=== PATIENT | female | born 1940 | race Caucasian/White ===

== ENCOUNTER 2021-10-21 15:33 | Inpatient (IN) | payer MEDICARE ==
[~2021-10-21] VITALS: Ht 172.7 cm; Wt 77.3 kg
[2021-10-21 16:00] LABS: BASO % 0.2 % (0.0-2.0); GRAN # 10.9 K/mm3 (1.4-6.5); GRAN % 82.4 % (42.2-75.2); HEMATOCRIT 39.5 % (37.0-47.0); LYMPH # 1.3 K/mm3 (1.2-3.4); LYMPH % 9.6 % (20.0-51.0); MEAN CELL VOLUME 78 fl (80.0-100.0); MEAN CORPUSCULAR HEMOGLOBIN 26 pg (27-31); MEAN CORPUSCULAR HGB CONC 33 g/dl (33.0-37.0); MONO % 7.2 % (1.7-9.3); PLATELET COUNT 219 K/mm3 (130-400); RED BLOOD COUNT 5.06 M/mm3 (4.10-5.30); REDCELL DISTRIBUTION WIDTH-CV 15.9 % (11.5-14.5)
[2021-10-21 16:07] LABS: INR 1.8 (0.8-3.0); PROTHROMBIN TIME 21.2 SECONDS (9.7-12.8)
[2021-10-21 16:09] LABS: PARTIAL THROMBOPLASTIN TIME 44.9 SECONDS (26.0-37.0)
[2021-10-21 16:22] LABS: ALBUMIN 3.2 gm/dL (3.4-4.8); BILIRUBIN,TOTAL 0.9 mg/dL (0.2-1.2); CALCIUM 9.6 mg/dL (8.4-10.2); CREATININE, serum 0.85 mg/dL (0.57-1.11); POTASSIUM 3.6 mmol/L (3.5-4.5)
[2021-10-21 16:28] LABS: COLLECTION METHOD CLEAN CATCH; URINE APPEARANCE Clear (CLEAR/HAZY); URINE COLOR Yellow (YELLOW); URINE GLUCOSE 3+ (NEGATIVE); URINE PROTEIN(semi-quant) 1+ (NEGATIVE)
[2021-10-21 16:29] LABS: URINE BLOOD 2+ (NEGATIVE); URINE KETONE Negative (NEGATIVE); URINE NITRATE Negative (NEGATIVE); URINE UROBILINOGEN 0.2 E.U/dL (0.2-1.0)
[2021-10-21 16:31] LABS: MUCOUS Present (NOT PRESENT); SQUAMOUS EPITHELIAL None Seen /hpf (0-10); URINE BACTERIA Rare /hpf (NONE SEEN)
[2021-10-21 16:32] LABS: TROPONIN-I 0.373 ng/mL (0.00-0.033)
[2021-10-21 17:14] VITALS: TEMP 98.9
[2021-10-21 18:50] VITALS: BP 105/60; PULSE 90
--- NOTE | 2021-10-21 20:45 | NUR ---
1900 - PATIENT ARRIVES TO FLOOR UNRESPONSIVE TO VERBAL COMMUNICATION. PATIENT WILL BRIEFLY OPEN EYE TO STERNAL RUB. PATIENT IS TRANSFERRED TO BED WITH NO ISSUES. PATIENT HYGIENE PERFORMED AT THIS TIME WELL A FULL SKIN ASSESSMENT. IT IS NOTED PATIENT IS VERY COLD AND STIFF WITH ANY KIND OF MANUAL MOVEMENT. APPROXIMATELY 2000 - PATIENT IS COLD, DIAPHORETIC AND IN A-FIB. THIS NURSE NOTIFIED NATHALIE CANTRELL AT THIS TIME. VITALS TAKEN AND ARE NOT WNL. SUNNY NOTIFIED FAMILY TO RETURN TO HOSPITAL. PATIENT IS TURNED TO RIGHT SIDE WITH PILLOW CUSHIONING. 2019 FAMILY ARRIVES AND IS ORIENTED TO ROOM AND ENCOURAGED TO CALL WITH ANY NEEDS OR CONCERNS. FAMILY STATES UNDERSTANDING. CURRENTLY AT BEDSIDE IS ONE DAUGHTER AND ONE GRAND DAUGHTER.
[2021-10-21] MEDS ORDERED: K-DUR 10 MEQ T10 MEQ PO (21:22)
[2021-10-21] MEDS ORDERED: NAMENDA 10MG TA10 MG PO (21:22)
[2021-10-21] MEDS ORDERED: FARXIGA10 PO (21:22)
[2021-10-21] MEDS ORDERED: CARDIZEM CD 18180 MG PO (21:22)
[2021-10-21] MEDS ORDERED: NEURONTIN300 MG/CAP PO (21:22)
[2021-10-21] MEDS ORDERED: PLAVIX 75MG TAB75 MG PO (21:22)
[2021-10-21] MEDS ORDERED: LEVEMIR FLEX100 U/ML SQ (21:23)
[2021-10-21] MEDS ORDERED: LOPID 600M600 MG/TAB PO (21:23)
[2021-10-21] MEDS ORDERED: GLUCOPHAGE500 MG/TAB PO (21:23)
[2021-10-21] MEDS ORDERED: SYNTHROID0.112 MG/T PO (21:24)
[2021-10-21] MEDS ORDERED: ZOLOFT 50MG50 MG PO (21:24)
[2021-10-21] MEDS ORDERED: XARELTO20 MG PO (21:24)
[2021-10-21] MEDS ORDERED: ARICEPT10 MG PO (21:24)
[2021-10-21] MEDS ORDERED: B-121000 MCG PO (21:25)
[2021-10-21] MEDS ORDERED: HYZAAR 25 MG-101 TAB PO (21:25)
[2021-10-21] MEDS ORDERED: MULTI VITAMINS1 TAB PO (21:28)
[2021-10-21] MEDS ORDERED: OMEGA-31 SGL PO (21:28)
--- NOTE | 2021-10-21 22:31 | NUR ---
THIS NURSE IN PATIENT ROOM TO DISCONTINUE TELE AT THIS TIME. PATIENT IS NOT AWAKE AND TALKING AT THIS TIME. PATIENT DOES OPEN EYES TO VERBALLY SAYING HER NAME. PATIENT THREE DAUGHTERS ARE AT BEDSIDE. FAMILY EXPRESSES APPRECIATION FOR ALL WE ARE DOING FOR THEIR MOTHER AND APPRECIATION FOR MAKING HER COMFORTABLE. PATIENT STATES IT FEELS REALLY NICE TO HAVE TELE OFF.
--- NOTE | 2021-10-22 00:06 | NUR ---
FAMILY HAS REQUESTED PATIENT IV AND OXYGEN BE REMOVED. PATIENT OXYGEN LEVEL WAS 82% AT ROOM AIR. DASHAIY REQUEST HONORED AT THIS TIME, OXYGEN REMOVED AND IV FLUIDS STOPPED. FAMILY IS DISCUSSING GOING HOME AT THIS TIME TO GET SOME REST. FAMILY ENCOURAGED BY THIS NURSE SHE WILL CALL WITH ANY CHANGES PER THEIR REQUEST. FAMILY STATES APPRECIATION FOR GENTLE CARE THE PATIENT IS RECEIVING FROM STAFF.
--- NOTE | 2021-10-22 06:14 | NUR ---
Alem called from lab to report poisitive blood cultures times two. Patient is resting in bed with eyes closed, minimally responsive to verbal communication. Patient is having brief moments of being able to converse under 1 minute. Call light is in patient lap and patient encouraged to use with needs or concerns.
--- NOTE | 2021-10-22 08:00 | NUR ---
PT ASSESSED, A&O X3, CONFUSED IN LOCATION. COMFORT CARE ORDER IN PLACE. VS PRN. IV CDI. DENIES PAIN AND DISCOMFORT. FOLLEY INTACT. LF FOOT ELEVATED ON PILLOW. REPOSITIONED FOR COMFORT. CALL LIGHT WITHIN REACH, BED ALARM ON.
--- NOTE | 2021-10-22 16:13 | NUR ---
Kimberli RN informs this Coat Fitter that patient's family requesting hospice care at [place]. Coat Fitter met with patient for intake assessment/discharge planning: Patient is somewhat oriented, but struggles to remember the names of her "daughters' daughters," expressing pride that she is a great grandmother. Coat Fitter obtains telephone contact for daughters on patient whiteboard: Sangeetha Barkley , and Kimberli Casanova ([phone]). Coat Fitter contacted Sangeetha, who updates this Coat Fitter: Patient lives alone, at home, and utilizes a walker to ambulate. Patient already has up to 1.5 hours per day Home Health through [facility], 5 days a week, excluding holidays and weekends. Karen Mei APRN is patient primary care in [place] and preferred pharmacy is [facility] in [place]. There are no concerns regarding patient medications. Daughter informs patient may benefit from in-home support services 24.7, including attendant care services. She does not know if patient will have a hospice diagnosis, and does not yet want a hospice referral placed. She would like to establish a family meeting tomorrow with patient's care team for medical update and care planning. She states patient has another daughter Marika Arango, who is not a DPOA-HC and requests that the treatment team defer any contact from Marika to she or her sister Kimberli. Sangeetha to bring DPOA-HC paperwork just in case it is not located in patient medical record tomorrow. She and Kimberli will need at least 1 hours notice to get to the hospital for care planning family meeting. Coat Fitter to establish family meeting with patient and treatment team tomorrow, to determine plan of care and identify in-home needs. *Discharge plan pending*
--- NOTE | 2021-10-22 17:40 | NUR ---
PT HAD AN UNEVENTFUL DAY. VITAL SIGNS STABLE. PT DENIES PAIN. FAMILY MEMBERS AT BEDSIDE MOST OF THE SHIFT. IV CLEAN AND INTACT. REPOSITIONED FOR COMFORT NEEDED. COMFORT CARE ORDERS IN PLACE. CALL LIGHT WITHIN REACH. BED ALARMS ON.
--- NOTE | 2021-10-23 05:16 | NUR ---
PATIENT HAS HAD UNEVENTFUL NIGHT. PATIENT LYING IN BED WITH EYES CLOSED. PATIENT OPENS EYES TO NAME AND DENIES PAIN. CALL LIGHT IS WITHIN PATIENT REACH AND PATIENT ENCOUARGED TO USE WITH ANY NEEDS OR CONCERNS. PATIENT STATES UNDERSTANDING.
--- NOTE | 2021-10-23 09:00 | NUR ---
Patient is resting in bed awake and oriented to self. Cath larsen in place, yellow clear output. Denies any pain at this time. Assessment completed, meds provided. No other need at this time. repositioned legs. Call light within reach, assisted to order breakfast. Bed alarm on.
--- NOTE | 2021-10-23 10:49 | NUR ---
Attended rounds. Discussed hospice options with patient, 2 of her daughters, and SW. Family understands what hospice is and are unable to provide hospice at home for the patient. They request placement in [place] with [facility] if possible. They also requested assistance completing the [facility] application. SW notified financial counselor.
--- NOTE | 2021-10-23 15:07 | NUR ---
Patient Escort attended clinical rounds with the team with Svitlana Palliative RN. Patient's daughters, Sangeetha and Kimberli at bedside. Patient awake and alert for rounds. Following physician rounding, JASMEET and Svitlana discussed plan of care. Patient and family have decided to pursue hospice. Patient's family are firm they cannot take patient home and provide care. They would like for patient to be placed in [place]. Preferences are 1) [place] [facility] and 2) [facility] [place]. Patient does not have funds to private pay and would be Medicaid pending. JASMEET consulted [facility] Financial Counselor who advised she will complete Medicaid application today. JASMEET contacted both facilities and faxed referral. Patient's family would like to use [facility] so JASMEET also faxed a referral to them. Discharge Plan: Hospice at [facility] Medicaid pending
--- NOTE | 2021-10-23 16:14 | NUR ---
[place] declined referral as they cannot accept any patient without a secondary payer source. Odette at [facility] advised they feel they can clinically meet needs but will need to speak with family about the financial aspect.
--- NOTE | 2021-10-23 17:38 | NUR ---
Patient has had a calm day. She has been alert and oriented but forgetful. She has been eating poorly. Family was with her for a good part of the day. Awaiting placement by JASMEET. Report will be given to night RN.
--- NOTE | 2021-10-24 07:12 | NUR ---
PT HAD UNEVENTFUL NIGHT. DENIES ANY PAIN OR DISCOMFORT. NO CONCERNS. REPORT GIVEN TO DAY SHIFT.
--- NOTE | 2021-10-24 15:57 | NUR ---
Compress Engineer spoke with Odette at [facility] who advised they spoke with family and can accept patient tomorrow. Odette advised transport would likely be in the afternoon. JASMEET told Odette that they would need oxygen and a wheelchair for moss picker. JASMEET updated Iris at [facility] who advised they could do an admit tomorrow vs depending on what time patient is picked up. JASMEET contacted patient's daughter, Sangeetha who is in agreement with discharge tomorrow to [facility]. JASMEET updated Palliative RN and Hospitalist. Discharge Plan: [facility] tomorrow
[2021-10-25] MEDS ORDERED: DULCOLAX S10 MG/SUPP RC (08:19)
[2021-10-25] MEDS ORDERED: SYSTANE 0.4%-0.1 SOL OU (08:19)
[2021-10-25] MEDS ORDERED: ATIVAN 1MG T1 MG/TAB PO (08:19)
[2021-10-25] MEDS ORDERED: NORCO 325 MG-51 TAB PO (08:19)
--- NOTE | 2021-10-25 11:40 | NUR ---
SHIFT ASSESSMENT COMPLETED. MORNING MEDICATIONS GIVEN. PT RESTING IN BED. DENIES ANY PAIN OR NEEDS. CALL LIGHT WITHIN REACH. ZAZUETA CATHETER DRAINING WELL. PLANS TO D/C THIS AFTERNOON. WILL CONTINUE TO MONITOR.
--- NOTE | 2021-10-25 13:39 | NUR ---
DISCHARGE INSTRUCTIONS GIVEN. ZAZUETA LEFT IN PLACE. DISCHARGE PACKET GIVEN TO MARINE ENGINEERING TECHNICIANS. REPORT CALLED TO RN AT [facility]. WILL D/C FROM SYSTEM.
--- NOTE | 2021-10-25 13:42 | NUR ---
Technical Adjuster contacted Odette with [facility] and transport time was set for 1330. SW contacted [facility] and provided transport time. SW faxed discharge orders to both [facility] and [facility]. SW contacted patient's daughter, Sangeetha and provided discharge time. Discharge Plan: [facility]
== END 2021-10-25 13:42 | disposition hospice, inpatient (51) | DRG 871 ==
LOC: COL.ER 15:33 → MEDICAL 17:49
PROVIDERS: Emergency Medicine; ADMIT Internal Medicine
DX: A41.9 Sepsis, unspecified organism (principal); R65.21 Severe sepsis with septic shock; G93.41 Metabolic encephalopathy; I21.A1 Myocardial infarction type 2; L97.429 Non-pressure chronic ulcer of left heel and midfoot with unspecified severity; M86.171 Other acute osteomyelitis, right ankle and foot; E87.2 Acidosis; Z66 Do not resuscitate; Z51.5 Encounter for palliative care; E87.1 Hypo-osmolality and hyponatremia; I48.20 Chronic atrial fibrillation, unspecified; I10 Essential (primary) hypertension; I95.9 Hypotension, unspecified; F03.90 Unspecified dementia, unspecified severity, without behavioral disturbance, psychotic disturbance, mood disturbance, and anxiety; Z20.822 Contact with and (suspected) exposure to COVID-19; E11.69 Type 2 diabetes mellitus with other specified complication; E78.5 Hyperlipidemia, unspecified; E11.65 Type 2 diabetes mellitus with hyperglycemia; E03.9 Hypothyroidism, unspecified; D50.9 Iron deficiency anemia, unspecified; E11.42 Type 2 diabetes mellitus with diabetic polyneuropathy; E11.622 Type 2 diabetes mellitus with other skin ulcer; E87.8 Other disorders of electrolyte and fluid balance, not elsewhere classified; E87.6 Hypokalemia; Z88.8 Allergy status to other drugs, medicaments and biological substances; Z91.048 Other nonmedicinal substance allergy status; Z79.01 Long term (current) use of anticoagulants; Z85.038 Personal history of other malignant neoplasm of large intestine; Z79.890 Hormone replacement therapy; Z79.4 Long term (current) use of insulin
CPT/HCPCS: J1644; J2543; J3370; J7030; J7050